=== PATIENT | female | born 1970 ===

== ENCOUNTER 2024-11-17 22:37 | Emergency (ER) | payer MEDICAID, OTHER ==
[~2024-11-17] VITALS: Ht 162.6 cm; Wt 83.2 kg
--- NOTE | 2024-11-17 23:19 | ED.PDOC ---
Epistaxis- HPI HPI Comments 53 y/o Slovenian-speaking, obese F, with a history of HTN, presents with significant other for c/c epistaxis. Patient endorses on 2x day history of intermittent, mild bleeding emanating from her right nare. Denies any trauma. Denies any lightheadedness, weakness, dizziness, shortness of breath, or further associated symptoms. Upon arrival to ED, triage, patient was found hypertensive at 195/104. Chief Complaint: Nose Bleed Time Seen by MD: 23:05 Reviewed Notes: Nurses Notes, Medications, Allergies Allergies: Coded Allergies: NO KNOWN ALLERGIES (Unverified , 11/17/24) Home Meds Active Scripts Potassium Chloride (Potassium Chloride ER) 10 Meq Tab, 10 MEQ PO BID for 7 Days, #14 TAB Prov:JENNI ROCK MD 11/18/24 Amlodipine Besylate (Amlodipine Besylate) 5 Mg Tab, 1 TAB PO DAILY for 90 Days, #90 TAB 3 Refills Prov:JENNI ROCK MD 11/18/24 Information Source: Patient Mode of Arrival: Ambulatory Timing: Days Duration: Intermittent Prehospital treatment: None Past Medical History PAST MEDICAL HISTORY: HTN Surgical History: Denies all surgeries EXTRUSION BENDER History: Denies all EXTRUSION BENDER Hx Family History Family History: Unknown Social History Smoker: Non-Smoker Alcohol: Denies ETOH Use Drugs: Denies Drug Use Lives In: Home All Other Systems: Reviewed and Negative (Comprehensive systems review obtained and negative except for what is stated in the HPI.) Physical Exam General Appearance: No Apparent Distress, Obese, Other (anxious affect ) HEENT: Pharynx Normal, TMs Normal, Other (mild anterior epistaxis to right nare) Neck: Full Range of Motion, Non-Tender, Normal, Normal Inspection Respiratory: Chest Non-Tender, Lungs Clear, No Accessory Muscle Use, No Respiratory Distress, Normal Breath Sounds Cardiovascular: No Edema, No JVD, No Murmur, No Gallop, Normal Peripheral Pulses, Regular Rate/Rhythm Breast Exam: Deferred Gastrointestinal: No Organomegaly, Non Tender, No Pulsatile Mass, Normal Bowel Sounds, Soft Genitalia: Deferred Pelvic: Deferred Rectal: Deferred Extremities: No calf tenderness, Normal capillary refill, Normal inspection, Normal range of motion, Non-tender, No pedal edema Musculoskeletal : Apperance: Normal Neurologic: Alert, seal skinner II-XII nml as Tested, No Motor Deficits, Normal Affect, Normal Mood, No Sensory Deficits Cerebellar Function: Normal Reflexes: Normal Skin: Dry, Normal Color, Warm Lymphatic: No Adenopathy Was a procedure done? Was a procedure done?: Yes Sedation Sedation?: No Informed consent obtained: Yes Nasal Cautery and Pack Indicaton: Anterior epitaxis Silver nitrate: Right Hemostasis: Was obtained Location of packing: Right Packing: Inflatable balloon Informed consent obtained: Yes Risks/benefits/alt described: Yes Differential Diagnosis (NSB) Differential Diagnosis: Anterior Nasal Bleed, Posterior Nasal Bleed, Hypertension, Coagulopathy X-Ray, Labs, Meds, VS Vital Signs Date Time Temp Pulse Resp B/P (MAP) Pulse Ox O2 Delivery O2 Flow Rate FiO2 11/18/24 01:50 81 18 122/69 (86) 11/18/24 01:18 Room Air* 0 21 11/18/24 01:09 198/113 11/18/24 01:07 98.3 80 80 198/113 (141) 97 98.3 11/17/24 22:37 98.7 82 18 195/104 97 98.7 Lab Test 11/17/24 23:21 Range/Units White Blood Count 10.0 4.4-10.8 10^3/uL Red Blood Count 4.72 4.0-5.20 10^6/uL Hemoglobin 14.9 12.2-16.2 g/dL Hematocrit 43.2 36.0-46.0 % Mean Corpuscular Volume 91.7 80.0-100.0 fL Mean Corpuscular Hemoglobin 31.6 28.0-32.0 pg Mean Corpuscular Hemoglobin Concent 34.5 32.0-36.0 g/dL Red Cell Distribution Width 13.2 11.8-14.3 % Platelet Count 254 140-450 10^3/uL Mean Platelet Volume 8.1 6.9-10.8 fL Neutrophils (%) (Auto) 61.6 37.0-80.0 % Lymphocytes (%) (Auto) 29.2 10.0-50.0 % Monocytes (%) (Auto) 7.0 0.0-12.0 % Eosinophils (%) (Auto) 1.5 0.0-7.0 % Basophils (%) (Auto) 0.7 0.0-2.0 % Neutrophils # (Auto) 6.2 1.6-8.6 10 ^3/uL Lymphocytes # (Auto) 2.9 0.4-5.4 10 ^3/uL Monocytes # (Auto) 0.7 0-1.3 10 ^3/uL Eosinophils # (Auto) 0.2 0-0.8 10 ^3/uL Basophils # (Auto) 0.1 0-0.2 10 ^3/uL Nucleated Red Blood Cells 0.1 % Prothrombin Time 10.6 9.3-11.8 sec Prothrombin Time INR 1.00 0.9-1.15 Activated Partial Thromboplast Time 27.3 24.5-34.5 SEC Sodium Level 140 136-145 mmol/L Potassium Level 3.2 L 3.5-5.1 mmol/L Chloride Level 103 98-107 mmol/L Carbon Dioxide Level 28 20-31 mmol/L Anion Gap 9 5-15 Blood Urea Nitrogen 10 9-23 mg/dL Creatinine 0.60 0.550-1.02 mg/dL Glomerular Filtration Rate Calc 107 >90 mL/min BUN/Creatinine Ratio 16.7 10.0-20.0 Serum Glucose 96 74-106 mg/dL Calcium Level 9.2 8.7-10.4 mg/dL Current Medications Medications (Trade) Dose Ordered Sig/[place] Route Start Time Stop Time Status Last Admin Hydralazine HCl (Apresoline Tablet) 50 mg ONCE ONCE PO 11/17/24 23:15 11/17/24 23:16 DC 11/18/24 01:09 Potassium Chloride (Klor-Con Tablet) 20 meq ONCE ONCE PO 11/18/24 00:15 11/18/24 00:16 DC 11/18/24 01:09 Time of 1ST Reevaluation: 23:35 Reevaluation 1ST: Unchanged Patient Education/Counseling: Need For Follow Up Family Education/Counseling: No Family Present Departure 1 Departure Time of Disposition: 23:00 Impression: Primary Impression: Acute anterior epistaxis Additional Impressions: Hypertensive urgency Hypokalemia Disposition: 01 HOME / SELF CARE / HOMELESS Condition: Stable e-Prescriptions Potassium Chloride (Potassium Chloride ER) 10 Meq Tab 10 MEQ PO BID for 7 Days, #14 TAB Prov: JENNI ROCK MD 11/18/24 Amlodipine Besylate (Amlodipine Besylate) 5 Mg Tab 1 TAB PO DAILY for 90 Days, #90 TAB 3 Refills Prov: JENNI ROCK MD 11/18/24 Discharged With: Self Critical Care Note Critical Care Time?: No Stability Stability form required: No Heart Score Heart Score: Heart Score Response (Comments) Value History N/A 0 EKG N/A 0 Age N/A 0 Risk Factors N/A 0 Troponin N/A 0 Total 0 I personally scribed for JENNI ROCK MD ([email or web address]) on 11/17/24 at 23:19. Electronically submitted by Emmanuel Santoyo [email or web address]). JENNI ROCK MD Nov 17, 2024 23:19
[2024-11-17 23:40] LABS: Hematocrit 43.2 % (36.0-46.0); Hemoglobin 14.9 g/dL (12.2-16.2); Mean Corpuscular Hemoglobin 31.6 pg (28.0-32.0); Mean Corpuscular Volume 91.7 fL (80.0-100.0); Nucleated Red Blood Cells % 0.1 %
[2024-11-17 23:45] LABS: Chloride 103 mmol/L (98-107); Sodium 140 mmol/L (136-145)
[2024-11-17 23:46] LABS: Anion Gap 9 (5-15); Calcium 9.2 mg/dL (8.7-10.4); Carbon Dioxide 28 mmol/L (20-31)
[2024-11-17 23:48] LABS: Potassium 3.2 mmol/L (3.5-5.1)
[2024-11-17 23:51] LABS: BUN/Creatinine Ratio 16.7 (10.0-20.0); Blood Urea Nitrogen 10 mg/dL (9-23); Glucose 96 mg/dL (74-106)
[2024-11-17 23:58] LABS: INR 1.0 (0.9-1.15); Partial Thromboplastin Time 27.3 SEC (24.5-34.5); Prothrombin Time 10.6 sec (9.3-11.8)
[2024-11-18] MEDS ORDERED: POTA-228 PO (00:09)
[2024-11-18] MEDS ORDERED: AMLO1TAB22 PO (00:09)
[2024-11-18 01:07] VITALS: TEMP 98.3; O2SAT 97
[2024-11-18] MEDS: POTASSIUM CHL 20 Meq TABLET PO ONE (01:09)
[2024-11-18 01:50] VITALS: BP 122/69; PULSE 81; RESP 18
== END 2024-11-18 01:50 | disposition home or self-care (01) ==
LOC: ER 22:37
DX: R04.0 Epistaxis (principal); I16.0 Hypertensive urgency; E87.6 Hypokalemia; I10 Essential (primary) hypertension; Z79.899 Other long term (current) drug therapy
CPT/HCPCS: 30901; 36415; 80048; 85025; 85610; 85730